=== PATIENT | female | born 1955 | race Caucasian/White ===

== ENCOUNTER → 2017-08-26 12:09 | Outpatient (CLI) | payer OTHER, SELFPAY ==
--- NOTE | 2017-08-26 | DI.MG.S_ITS ---
BILATERAL DIGITAL SCREENING MAMMOGRAM 3D/2D WITH CAD: 08/26/2017 CLINICAL: Routine screening. Comparison is made to exams dated: 05/03/2016 mammogram, 08/20/2014 mammogram, and 07/10/2013 mammogram - [facility]. There are scattered fibroglandular elements in both breasts. Current study was also evaluated with a Computer Aided Detection (CAD) system. There is a benign density in the right breast. No significant masses, calcifications, or other findings are seen in either breast. There has been no significant interval change. IMPRESSION: BENIGN There is no mammographic evidence of malignancy. A 1 year screening mammogram is recommended. This exam was interpreted at Station ID: [id number]. NOTE: For mammograms, a report in lay terms will be sent to the patient. Approximately 15% of breast malignancies will not be visualized mammographically. In the management of a palpable breast mass, a negative mammogram must not discourage biopsy of a clinically suspicious lesion. Electronically Signed By: Scooby higginbotham/geovanny:08/28/2017 11:35:58 letter sent: Normal Exam ACR BI-RADS Category 2: Benign Finding(s) 3342F
== END ==
DX: Z12.31 Encounter for screening mammogram for malignant neoplasm of breast (principal)
CPT/HCPCS: 77063; 77067

== ENCOUNTER → 2017-09-01 07:36 | Outpatient (CLI) | payer OTHER, SELFPAY ==
[2017-09-01 08:36] LABS: Add Manual Diff / Slide Review NO; Basophils Percent Auto 0.8 % (0-2); Eosinophils Percent Auto 6.4 % (2-4); Hematocrit 42.2 % (36-46); Hemoglobin 14.4 g/dL (12.0-16.0); Lymphocytes Percent Auto 29.2 % (25-40); Mean Corpuscular HGB Conc 34.1 % (30-36); Mean Corpuscular Hemoglobin 29.8 PG (26-34); Mean Corpuscular Volume 87.4 fL (80-100); Monocytes Percent Auto 8.9 % (3-14); Neutrophils Absolute Auto 3000 /uL (3000-5900); Neutrophils Percent Auto 54.7 % (50-75); Platelet Count 262 X10^3/uL (150-400); Red Blood Cell Count 4.83 X10^6/uL (4.0-5.2); Red Cell Distribution Width 14.4 % (11.6-14.8); White Blood Cell Count 5.5 X10^3/uL (4.5-11.0)
[2017-09-01 09:04] LABS: Alanine Aminotransferase 25 IU/L (9-52); Albumin 4.1 g/dL (3.5-5.0); Albumin Globulin Ratio 1.2 (1.0-2.8); Alkaline Phosphatase 68 U/L (38-126); Aspartate Aminotransferase 21 IU/L (14-36); BUN Creatinine Ratio 18.3 (6-22); Bilirubin Total 0.6 mg/dL (0.2-1.3); Calcium 9.4 mg/dL (8.4-10.2); Cholesterol 193 mg/dL (140-199); Estimated Glomerular Filt Rate > 60.0 mL/min (>60); Globulin 3.4 g/dL (1.7-4.1); Glucose 96 mg/dL (80-110); HDL Cholesterol 56 mg/dL (40-60); HEMOLYSIS 20 (0-50); LDL Cholesterol Calculated 110 mg/dL (<100); Potassium 4.1 mmol/L (3.4-5.1); Sodium 139 mmol/L (137-145); Total Protein 7.5 g/dL (6.3-8.2); Triglycerides 137 mg/dL (35-150)
[2017-09-01 09:33] LABS: Thyroid Stimulating Hormone 1.98 uIU/mL (0.47-4.68)
== END ==
DX: Z13.228 Encounter for screening for other metabolic disorders (principal); Z13.220 Encounter for screening for lipoid disorders
CPT/HCPCS: 36415; 80053; 80061; 84443; 85025

== ENCOUNTER → 2018-12-29 10:12 | Outpatient (CLI) | payer OTHER, SELFPAY ==
--- NOTE | 2018-12-29 | DI.MG.S_ITS ---
BILATERAL DIGITAL SCREENING MAMMOGRAM 3D/2D WITH CAD: 12/29/2018 CLINICAL: Routine screening. Comparison is made to exams dated: 08/26/2017 mammogram, 05/03/2016 mammogram, and 08/20/2014 mammogram - [facility]. There are scattered fibroglandular elements in both breasts. Current study was also evaluated with a Computer Aided Detection (CAD) system. There is possible architectural distortion in the right breast at 10 o'clock posterior depth. No other significant masses, calcifications, or other findings are seen in either breast. IMPRESSION: INCOMPLETE: NEEDS ADDITIONAL IMAGING EVALUATION The possible architectural distortion in the right breast is indeterminate. Additional views with possible ultrasound are recommended. This exam was interpreted at Station ID: [id number]. NOTE: For mammograms, a report in lay terms will be sent to the patient. Approximately 15% of breast malignancies will not be visualized mammographically. In the management of a palpable breast mass, a negative mammogram must not discourage biopsy of a clinically suspicious lesion. Electronically Signed By: Jade [email or web address]:12/31/2018 10:31:34 letter sent: Additional Imaging Needed ACR BI-RADS Category 0: Incomplete 3340F
== END ==
DX: Z12.31 Encounter for screening mammogram for malignant neoplasm of breast (principal)
CPT/HCPCS: 77063; 77067

== ENCOUNTER → 2019-01-17 13:33 | Outpatient (CLI) | payer OTHER, SELFPAY ==
--- NOTE | 2019-01-17 | DI.MG.S_ITS ---
UNILATERAL RIGHT DIGITAL DIAGNOSTIC MAMMOGRAM 3D/2D WITH ADDITIONAL VIEWS: 01/17/2019 CLINICAL: Patient returns today to evaluate possible architectural distortion in the right breast. Comparison is made to exams dated: 12/29/2018 mammogram, 08/26/2017 mammogram, and 05/03/2016 mammogram - [facility]. There are scattered fibroglandular elements in right breast. Previously identified architectural distortion in the superior lateral right breast posterior depth (described as being near 10 o'clock position) on comparison screening mammogram of 12/29/18 persists with additional views. No other suspicious masses, calcifications, or other findings are seen in the breast. IMPRESSION: INCOMPLETE: NEEDS ADDITIONAL IMAGING EVALUATION Previously identified architectural distortion in the superior lateral right breast posterior depth (described as being near 10 o'clock position) on comparison screening mammogram of 12/29/18 persists with additional views. A targeted ultrasound is recommended for further evaluation, and will be performed immediately following this exam. This exam was interpreted at Station ID: [id number]. NOTE: For mammograms, a report in lay terms will be sent to the patient. Approximately 15% of breast malignancies will not be visualized mammographically. In the management of a palpable breast mass, a negative mammogram must not discourage biopsy of a clinically suspicious lesion. Electronically Signed By: Johnathan Shrestha M.D. ecl/:01/17/2019 14:21:47 ACR BI-RADS Category 0: Incomplete 3340F
--- NOTE | 2019-01-17 | DI.US.S_ITS ---
LIMITED ULTRASOUND OF RIGHT BREAST: 01/17/2019 CLINICAL: Patient returns today to evaluate an architectural distortion in the right breast. Comparison is made to exams dated: 01/17/2019 mammogram, 12/29/2018 mammogram, 08/26/2017 mammogram, 05/03/2016 mammogram, 08/20/2014 mammogram, and 07/10/2013 mammogram - [facility]. Color flow and real-time ultrasound of the right breast 9-10 o'clock region were performed. Minor scale images of the real-time examination were reviewed. There is a 0.9 x 0.8 x 1.7 cm heterogeneously echoic irregular indistinct mass with posterior shadowing in the right breast at 9:30 position 8 cm from the nipple which demonstrates no internal vascularity on Doppler imaging. This may or may not correlate with the area of architectural distortion seen on the comparison mammogram performed earlier on the same date 01/17/19. No other mass or abnormality is identified in this region by ultrasound. No ultrasound evidence of right axillary lymphadenopathy. IMPRESSION: SUSPICIOUS OF MALIGNANCY 1.7 x 0.9 x 0.8 cm irregular indistinct heterogeneous mass in the right breast at 9:30 position 8 cm from the nipple. This may or may not correlate with the area of architectural distortion seen on comparison mammography. An ultrasound-guided biopsy with marker clip placement is recommended; if the marker clip does not correlate with the area of architectural distortion, or if the mass is not able to be biopsied by ultrasound, consider stereotactic/tomosynthesis-guided biopsy for further evaluation. These results and recommendations were discussed with the patient at the time of the exam by Dr. Shrestha by telephone on 01/17/19. This exam was interpreted at Station ID: [id number]. Electronically Signed By: Johnathan Shrestha M.D. ecl/:01/18/2019 08:49:45 letter sent: Biopsy Required Ultrasound BI-RADS: 4c High suspicion of malignancy
== END ==
DX: R92.8 Other abnormal and inconclusive findings on diagnostic imaging of breast (principal); N63.11 Unspecified lump in the right breast, upper outer quadrant
CPT/HCPCS: 76642; 77065; G0279

== ENCOUNTER → 2019-02-15 07:36 | Outpatient (CLI) | payer OTHER, SELFPAY ==
--- NOTE | 2019-02-15 | DI.MG.S_ITS ---
UNILATERAL RIGHT DIGITAL DIAGNOSTIC MAMMOGRAM POST-NEEDLE BIOPSY: 02/15/2019 CLINICAL: Post right breast biopsy clip images. Comparison is made to exams dated: 01/17/2019 mammogram, 12/29/2018 mammogram, 08/26/2017 mammogram, and 01/17/2019 [facility]. There are scattered fibroglandular elements in right breast. There is a new dea shaped biopsy clip in the superior lateral right breast at posterior depth. This appears to be within or closely adjacent the area of architectural distortion described on comparison screening mammogram of 12/29/18 and diagnostic mammogram of 01/17/19. IMPRESSION: POST PROCEDURE MAMMOGRAM FOR MARKER PLACEMENT New dea shaped biopsy clip in the superior lateral right breast at posterior depth. This exam was interpreted at Station ID: [id number]. NOTE: For mammograms, a report in lay terms will be sent to the patient. Approximately 15% of breast malignancies will not be visualized mammographically. In the management of a palpable breast mass, a negative mammogram must not discourage biopsy of a clinically suspicious lesion. Electronically Signed By: Johnathan Shrestha M.D. ecl/:02/15/2019 11:52:54 ACR BI-RADS Category Post-procedure mammogram for marker placement
--- NOTE | 2019-02-15 | DI.US.S_ITS ---
ULTRASOUND GUIDED BIOPSY RIGHT BREAST USING VACUUM DEVICE WITH MARKING DEVICE INSERTED AND POST DIGITAL MAMMOGRAPHIC IMAGIN02/15/2019 CLINICAL: Right breast mass. PATIENT CONSENT: Risks (minor bleeding, infection, vasovagal reaction and repeat procedure), benefits and alternatives were explained to the patient and written informed consent was obtained. Correlation is made to exams dated: 01/17/2019 ultrasound, 01/17/2019 mammogram, 12/29/2018 mammogram, 08/26/2017 mammogram, 05/03/2016 mammogram, and 08/20/2014 mammogram - [facility]. An ultrasound guided biopsy using real-time ultrasound was performed for the concerning mass located in the right breast at 9:30 position 8 cm from the nipple. This was described on the previous ultrasound report. The skin was prepped in the usual manner. 5 mL of 1% lidocaine and 5 mL of 1% lidocaine with epinephrine was used for local anesthesia. A skin efraín was made in the breast. The abnormality was approached from the lateral aspect. A 13 gauge biopsy needle was placed adjacent to the abnormality under ultrasound guidance. Once the needle was documented to be in the correct location, six specimens were obtained using the Mammotome biopsy system. A Ezekiel-shaped clip was inserted into the biopsy cavity. A skin adhesive was applied to the access site. Post procedure digital mammographic imaging demonstrates the location device at the targeted area. The specimens were sent to the laboratory for pathological analysis. IMPRESSION: ULTRASOUND GUIDED BIOPSY BENIGN Ultrasound guided biopsy of the mass in the right breast at 9:30 position 8 cm from the nipple was successful with no apparent post procedure complications. Post procedure digital mammographic imaging demonstrates the location device at the targeted area of biopsy, and the newly placed biopsy clip appears to be within or closely adjacent the area of possible architectural distortion described on comparison screening mammogram of 12/29/18 and diagnostic mammogram of 01/17/19. Final pathology results per pathologist Dr. Kirti Bui identified fibrocystic changes including microcysts, apocrine metaplasia, and dense fibrous tissue. No microcalcifications identified. Negative for atypical hyperplasia, in situ, or invasive carcinoma. Pathology results appear to be concordant with ultrasound imaging findings but may not adequately explain the possible architectural distortion described on comparison screening mammography of 12/20/18 and diagostic mammography of 01/17/19. The previously described possible architectural distortion does not appear amenable to stereotactic biopsy at this time given post biopsy changes. A follow-up MRI in 4-8 weeks after post biopsy changes have resolved is recommended for further evaluation. This exam was interpreted at Station ID: [id number]. Johnathan Shrestha M.D. ecl/:02/25/2019 20:40:56
--- NOTE | 2019-02-15 | PATH_ITS ---
[facility] Accession Number: [id number] . 01 Material submitted: . breast - RIGHT BREAST MASS 9:30 8 CM FN . 01 Clinical history: . LEFT BREAST MASS . 02 Diagnosis: Right Breast, Mass at 9:30, 8 CM FN, Core Needle Biopsies: Fibrocystic changes including microcysts, apocrine metaplasia and dense fibrous breast tissue. No microcalcifications identified. Negative for atypical hyperplasia, in situ, or invasive carcinoma. MRV 02/18/2019 1048 Local . 02 Comment: As part of routine quality nurse, Dr. Santizo also reviewed this case and agrees with the diagnosis. . 02 Electronically signed: . Kirti Bui MD, Pathologist NPI- [id number] . 01 Gross description: . Received one formalin-filled container labeled with the patient's name and designated right breast mass 9:30 8 cm FN. The specimen is received with a plastic filter in container, sample loose in container and consists of multiple light yellow, rough, cylindrical-shaped portions of tissue which range in size from 0.1 x 0.1 x 0.1 cm to 1.0 x 0.3 x 0.2 cm. All fragments are totally submitted in one cassette. The specimen is entirely submitted in one cassette. Collection date: 02/15/19. Collection time per container: 8:40 a.m. Total fixation time: Approximately 39 hours. ([id number]) /FRHelen 02/16/2019 0433 Local . 02 Pathologist provided ICD-10: N63.10 . 02 CPT . 407132 Performed at: 01 [facility] [address], [place], [place] [id number] MD Scooby Gonzales MD Phone: [phone] Performed at: 02 [facility] [address] [place] [id number] MD Kirti Bui MD Phone: [phone]
== END ==
DX: N60.81 Other benign mammary dysplasias of right breast (principal)
CPT/HCPCS: 19083; 77065

== ENCOUNTER → 2019-12-30 07:47 | Outpatient (CLI) | payer OTHER, SELFPAY ==
[2019-12-30 08:20] LABS: Hemoglobin A1C% w Est Avg Glu 5.8 % (4.0-6.0)
[2019-12-30 08:45] LABS: Hematocrit 41.3 % (36-46); Hemoglobin 13.8 g/dL (12.0-16.0); Mean Corpuscular HGB Conc 33.3 % (30-36); Mean Corpuscular Volume 84.1 fL (80-100); Platelet Count 307 X10^3/uL (150-400); Red Blood Cell Count 4.91 X10^6/uL (4.0-5.2); Red Cell Distribution Width 15.7 % (11.6-14.8); White Blood Cell Count 6.6 X10^3/uL (4.5-11.0)
[2019-12-30 09:21] LABS: Alanine Aminotransferase 15 IU/L (<35); Albumin 3.9 g/dL (3.5-5.0); Albumin Globulin Ratio 1.3 (1.0-2.8); Alkaline Phosphatase 70 U/L (38-126); Aspartate Aminotransferase 19 IU/L (14-36); BUN Creatinine Ratio 17.8 (6-22); Bilirubin Total 0.5 mg/dL (0.2-1.3); Blood Urea Nitrogen 13 mg/dL (7-17); Calcium 9.7 mg/dL (8.4-10.2); Carbon Dioxide 25 mmol/L (22-32); Chloride 105 mmol/L (98-107); Cholesterol 185 mg/dL (140-199); Estimated Glomerular Filt Rate > 60.0 mL/min (>60); Globulin 3.1 g/dL (1.7-4.1); Glucose 100 mg/dL (80-110); HDL Cholesterol 57 mg/dL (40-60); HEMOLYSIS < 15 (0-50); LDL Cholesterol Calculated 99 mg/dL (<100); Potassium 4.7 mmol/L (3.4-5.1); Sodium 139 mmol/L (137-145); Triglycerides 145 mg/dL (35-150)
[2019-12-30 09:38] LABS: Vitamin D 25 Hydroxy (D3) 22.2 ng/mL (30.0-100.0)
[2019-12-30 09:51] LABS: TSH w/ Reflex to FT4 1.98 uIU/mL (0.47-4.68)
== END ==
PROVIDERS: PCP Family Medicine; Referring Provider Family Medicine; Visit Provider Family Medicine
DX: Z00.00 Encounter for general adult medical examination without abnormal findings (principal); E66.01 Morbid (severe) obesity due to excess calories; Z13.220 Encounter for screening for lipoid disorders; Z83.49 Family history of other endocrine, nutritional and metabolic diseases; Z13.1 Encounter for screening for diabetes mellitus
CPT/HCPCS: 36415; 80053; 80061; 82306; 83036; 84443; 85027

== ENCOUNTER → 2020-01-06 10:13 | Outpatient (CLI) | payer OTHER, SELFPAY ==
--- NOTE | 2020-01-06 | DI.MG.S_ITS ---
BILATERAL DIGITAL SCREENING MAMMOGRAM 3D/2D WITH CAD: 01/06/2020 CLINICAL: Routine screening. Comparison is made to exams dated: 02/15/2019 mammogram, 01/17/2019 mammogram, 12/29/2018 mammogram, and 08/26/2017 mammogram - [facility]. There are scattered fibroglandular elements in both breasts. Current study was also evaluated with a Computer Aided Detection (CAD) system. There are benign calcifications in the left breast. There also is a biopsy clip in the right breast. No significant masses, calcifications, or other findings are seen in either breast. There has been no significant interval change. IMPRESSION: BENIGN There is no mammographic evidence of malignancy. A 1 year screening mammogram is recommended. This exam was interpreted at Station ID: [id number]. NOTE: For mammograms, a report in lay terms will be sent to the patient. Approximately 15% of breast malignancies will not be visualized mammographically. In the management of a palpable breast mass, a negative mammogram must not discourage biopsy of a clinically suspicious lesion. Electronically Signed By: Scooby higginbotham/geovanny:01/06/2020 11:45:11 letter sent: Normal Exam ACR BI-RADS Category 2: Benign Finding(s) 3342F
== END ==
PROVIDERS: PCP Family Medicine; Referring Provider Family Medicine; Visit Provider Family Medicine
DX: Z12.31 Encounter for screening mammogram for malignant neoplasm of breast (principal)
CPT/HCPCS: 77063; 77067

== ENCOUNTER → 2020-07-16 13:47 | Outpatient (CLI) | payer OTHER, SELFPAY ==
[2020-07-16] MEDS: COVID-19 VACC, Ad26(JANSSEN)/PF 0.5 ML IM (13:53)
== END ==
PROVIDERS: PCP Family Medicine; Visit Provider Internal Medicine
DX: Z23 Encounter for immunization (principal)
CPT/HCPCS: 0031A; 91303

== ENCOUNTER 2021-05-11 17:14 | Emergency (ER) | payer OTHER, SELFPAY ==
[2021-05-11 17:20] VITALS: BP 200/100; PULSE 77; RESP 20; TEMP 36.6; O2SAT 100
--- NOTE | 2021-05-11 17:44 | DI.RAD.S_ITS ---
PROCEDURE: XR WRIST LT MIN 3V INDICATIONS: fall TECHNIQUE: 4 views of the wrist were acquired. COMPARISON: None. FINDINGS: Bones: There is a comminuted intra-articular fracture of the distal radius with mild dorsal angulation. No suspicious bony lesions. Scaphoid view: Intact scaphoid. Soft tissues: No suspicious soft tissue calcifications. IMPRESSION: Comminuted intra-articular fracture of the distal radius with mild dorsal angulation. Dictated by: Aleksander Balderas M.D. on 05/11/2021 at 18:14 Approved by: Aleksander Balderas M.D. on 05/11/2021 at 18:19
--- NOTE | 2021-05-11 18:27 | DI.RAD.S_ITS ---
PROCEDURE: XR FOREARM LT 2V INDICATIONS: Foosh TECHNIQUE: 2 views of the forearm were acquired. COMPARISON: None. FINDINGS: Bones: Comminuted distal radial intra-articular fracture with displaced fracture fragments. No additional fracture noted. Normal bone mineralization. Soft tissues: No suspicious soft tissue calcifications or masses. IMPRESSION: Comminuted distal radial intra-articular fracture Approved by: Felix Figueredo M.D. on 05/11/2021 at 18:13
--- NOTE | 2021-05-11 18:27 | DI.RAD.S_ITS ---
PROCEDURE: XR ELBOW LT MIN 3V INDICATIONS: foosh TECHNIQUE: 3 views of the elbow were acquired. COMPARISON: None. FINDINGS: Bones: No fractures or dislocations. No suspicious bony lesions. Soft tissues: No elbow joint effusion. No suspicious soft tissue calcifications. IMPRESSION: Normal elbow radiographs Approved by: Felix Figueredo M.D. on 05/11/2021 at 18:14
--- NOTE | 2021-05-11 18:27 | DI.RAD.S_ITS ---
PROCEDURE: XR HAND LT MIN 3V INDICATIONS: foosh TECHNIQUE: 3 views of the hand(s) acquired. COMPARISON: None. FINDINGS: Bones: Comminuted distal radial intra-articular fracture extends into the radiocarpal joint space with displaced fracture fragments. Soft tissues: No suspicious soft tissue calcifications. Associated soft tissue swelling without radiopaque foreign body IMPRESSION: Comminuted intra-articular distal radial fracture with displacement Approved by: Felix Figueredo M.D. on 05/11/2021 at 18:12
[2021-05-11] MEDS: IBUPROFEN 400 MG TABLET 800 MG PO (18:44)
--- NOTE | 2021-05-11 19:25 | ED.UPPEXIN ---
HPI - Extremity Injury (Upper) <Ana Laura Francis PA-C - Last Filed: 05/11/21 20:12> General Chief Complaint: Extremity Injury, Upper Stated Complaint: Left wrist injury Time Seen by Provider: 05/11/21 17:43 Source: patient Mode of arrival: Ambulatory History of Present Illness HPI narrative: 65-year-old female with no reported past medical history presents to the ED status post a left wrist injury sustained just prior to arrival. Patient had a mechanical slip and fall while coming down the stairs, had a FOOSH injury. Patient denies head strike. Patient denies being on blood thinners. Patient denies numbness, tingling, weakness. Patient denies fever, chills, chest pain, shortness of breath, cough, nausea, vomiting, lightheadedness, dizziness, syncope. Related Data Allergies Allergy/AdvReac Type Severity Reaction Status Date / Time No Known Drug Allergies Allergy Verified 05/11/21 17:21 Review of Systems <Ana Laura Francis PA-C - Last Filed: 05/11/21 20:12> Review of Systems ROS Unobtainable: All systems reviewed & are unremarkable except as noted in HPI and below Constitutional Constitutional: Denies chills, Denies fatigue, Denies fever(s), Denies frequent falls, Denies lethargy and Denies weakness Eyes Eyes: Denies change in vision, Denies eye discharge, Denies irritation and Denies loss of vision ENT Ears, Nose, Mouth, and Throat: Denies change in voice, Denies dizziness, Denies neck pain, Denies sore throat and Denies throat swelling Cardiovascular Cardiovascular: Denies chest pain, Denies irregular heart rhythm, Denies lightheadedness, Denies palpitations, Denies dyspnea, Denies dyspnea on exertion and Denies orthopnea Respiratory Respiratory: Denies cough, Denies dyspnea, Denies dyspnea on exertion and Denies wheezing Gastrointestinal Gastrointestinal: Denies abdominal pain, Denies change in bowel habits, Denies diarrhea, Denies nausea and Denies vomiting Genitourinary Genitourinary: Denies hematuria, Denies flank pain, Denies urinary incontinence and Denies urinary urgency Musculoskeletal Musculoskeletal: Denies back pain, Denies muscle weakness, Denies neck pain, Denies numbness and Denies tingling Comments: Left wrist injury, pain, swelling Integumentary/Breasts Skin/Breast: Denies pruritus, Denies erythema, Denies rash and Denies wounds Neurologic Neurologic: Denies behavioral changes, Denies confusion, Denies dizziness, Denies frequent falls, Denies loss of vision, Denies numbness, Denies tingling and Denies weakness Psychiatric Psychiatric: Denies anxiety, Denies behavioral changes, Denies confusion, Denies depression, Denies homicidal ideation and Denies suicidal ideation Endocrine Endocrine: Denies fatigue, Denies flushing and Denies palpitations Hematologic/Lymphatic Hematologic/Lymphatic: Denies easy bruising Allergic/Immunologic Allergic/Immunologic: Denies urticaria, Denies throat swelling and Denies wheezing Exam <Ana Laura Francis PA-C - Last Filed: 05/11/21 20:12> Initial Vital Signs Initial Vital Signs: Vital Signs Temperature 97.8 F 05/11/21 17:20 Pulse Rate 77 05/11/21 17:20 Respiratory Rate 20 05/11/21 17:20 Blood Pressure 200/100 H 05/11/21 17:20 Pulse Oximetry 100 05/11/21 17:20 Const General: cooperative, healthy appearing and comfortable Resp Effort & Inspection: normal respiratory effort Auscultation: clear to auscultation bilaterally Cardio Rate: regular rate Rhythm: regular rhythm Skin General: no rashes or lesions noted Neuro General: patient alert, patient awake and patient oriented x3 Extrem Other: Swelling, tenderness to palpation of left wrist. Deformity noted. Neurovascularly intact. Strength and sensation intact. Cap refill less than 2 seconds. Full range of motion. Psych Appearance: grossly normal <Dorian Valdes DO - Last Filed: 05/12/21 07:13> Initial Vital Signs Initial Vital Signs: Vital Signs Temperature 97.8 F 05/11/21 17:20 Pulse Rate 77 05/11/21 17:20 Respiratory Rate 20 05/11/21 17:20 Blood Pressure 200/100 H 05/11/21 17:20 Pulse Oximetry 100 05/11/21 17:20 Procedures <Ana Laura Francis PA-C - Last Filed: 05/11/21 20:12> Orthopedic Fracture Reduction Fracture #1: Side: left Fracture Reduction Location: radius Analgesia: none Technique: direct manipulation Post-reduction neuro exam: intact Post-reduction vascular exam: intact Splint Applied: Yes Patient Tolerated Procedure: Well Orthopedic Splinting/Casting Injury #1: Side: left Upper Extremity Injury Location: wrist Upper Extremity Immobilizer: wrist splint Post splinting neuro exam: intact Post splinting vascular exam: intact Placed by: Provider Course <Ana Laura Francis PA-C - Last Filed: 05/11/21 20:12> Orders Ordered: Discontinued Medications Ibuprofen (Ibuprofen 400 Mg Tablet) 800 mg PO NOW ONE Stop: 05/11/21 18:24 Last Admin: 05/11/21 18:44 Dose: 800 mg Documented by: NETO Morphine Sulfate (Morphine 4 Mg/Ml Inj) 4 mg IM NOW ONE Stop: 05/11/21 19:40 Last Admin: 05/11/21 19:57 Dose: Not Given Documented by: NETO Vital Signs Vital signs: Vital Signs - 8 hr 05/11/21 17:20 05/11/21 19:26 Temperature 97.8 F Pulse Rate 77 94 H Respiratory Rate 20 Blood Pressure 200/100 H 153/79 H Pulse Oximetry 100 97 <Dorian Valdes DO - Last Filed: 05/12/21 07:13> Orders Ordered: Discontinued Medications Ibuprofen (Ibuprofen 400 Mg Tablet) 800 mg PO NOW ONE Stop: 05/11/21 18:24 Last Admin: 05/11/21 18:44 Dose: 800 mg Documented by: NETO Morphine Sulfate (Morphine 4 Mg/Ml Inj) 4 mg IM NOW ONE Stop: 05/11/21 19:40 Last Admin: 05/11/21 19:57 Dose: Not Given Documented by: NETO Vital Signs Vital signs: Vital Signs - 8 hr 05/11/21 17:20 05/11/21 19:26 Temperature 97.8 F Pulse Rate 77 94 H Respiratory Rate 20 Blood Pressure 200/100 H 153/79 H Pulse Oximetry 100 97 MDM - Extremity Injury (Upper) <Ana Laura Farncis PA-C - Last Filed: 05/11/21 20:12> Imaging Data Extremity x-ray #1: Radiologist's Impression: PROCEDURE:? XR HAND LT MIN 3V ? INDICATIONS:? foosh ? TECHNIQUE:? 3 views of the hand(s) acquired.? ? COMPARISON:? None. ? FINDINGS:? ? Bones:? Comminuted distal radial intra-articular fracture extends into the radiocarpal joint space with displaced fracture fragments. ? Soft tissues:? No suspicious soft tissue calcifications.? Associated soft tissue swelling without radiopaque foreign body ? ? IMPRESSION:? Comminuted intra-articular distal radial fracture with displacement ? ? ? Approved by: Felix Figueredo M.D. on 05/11/2021 at 18:12? Extremity x-ray #2: Radiologist's Impression: PROCEDURE:? XR FOREARM LT 2V ? INDICATIONS:? Foosh ? TECHNIQUE:? 2 views of the forearm were acquired.? ? COMPARISON:? None. ? FINDINGS:? ? Bones:? Comminuted distal radial intra-articular fracture with displaced fracture fragments.? No additional fracture noted.? Normal bone mineralization. ? Soft tissues:? No suspicious soft tissue calcifications or masses.? ? ? IMPRESSION:? Comminuted distal radial intra-articular fracture ? Approved by: Felix Figueredo M.D. on 05/11/2021 at 18:13? Extremity x-ray #3: Radiologist's Impression: PROCEDURE:? XR ELBOW LT MIN 3V ? INDICATIONS:? foosh ? TECHNIQUE:? 3 views of the elbow were acquired.? ? COMPARISON:? None. ? FINDINGS:? ? Bones:? No fractures or dislocations.? No suspicious bony lesions.? ? Soft tissues:? No elbow joint effusion.? No suspicious soft tissue calcifications.? ? ? IMPRESSION:? Normal elbow radiographs ? ? ? Approved by: Felix Figueredo M.D. on 05/11/2021 at 18:14? Wrist x-ray: Radiologist's Impression: PROCEDURE:? XR WRIST LT MIN 3V ? INDICATIONS: fall ? TECHNIQUE:? 4 views of the wrist were acquired.? ? COMPARISON:? None. ? FINDINGS:? ? Bones:? There is a comminuted intra-articular fracture of the distal radius with mild dorsal angulation. ? No suspicious bony lesions.? ? Scaphoid view:? Intact scaphoid. ? Soft tissues:? No suspicious soft tissue calcifications.? ? IMPRESSION:? Comminuted intra-articular fracture of the distal radius with mild dorsal angulation. ? ? ? Dictated by: Aleksander Balderas M.D. on 05/11/2021 at 18:14 ? ? Approved by: Aleksander Balderas M.D. on 05/11/2021 at 18:19 ? MDM Narrative Medical decision making narrative: 65-year-old female with no reported past medical history presents to the ED status post a left wrist injury sustained just prior to arrival. Concern for fracture/dislocation versus musculoskeletal sprain/strain. Will obtain x-rays. Will treat pain with ibuprofen. X-ray shows a comminuted intra-articular distal radius fracture with displacement. Dr. Vogt from ortho consulted. She recommends closed reduction with this immobilization with a splint, CT, outpatient follow-up in the clinic. Discharge Plan Departure Patient Disposition: Home Clinical Impression: Distal radial fracture Instructions: DI for Distal Radius Fracture Activity Restrictions/Additional Instructions: You were evaluated in the ED today for a left wrist injury. Your x-ray showed a distal radius fracture with displacement. Your wrist was reduced and splinted. Please keep the splint on until you see the ortho specialist. Dr. Vogt, ortho specialist was consulted and she will see you in the clinic. Please call [facility] at [phone] to secure an appointment. Return to the ED if your symptoms worsen, you experience numbness, tingling, weakness. Referrals: Dania Glez DO [Primary Care Provider] - <Dorian Valdes DO - Last Filed: 05/12/21 07:13> [facility] Dr Valdes Co-Sign Statement: I was available for consultation during this patient's emergency department visit. This chart is signed by myself for administrative purposes only. I did not have direct contact with this patient during this visit. They were seen independently by the APC.
[2021-05-11 19:26] VITALS: BP 153/79; PULSE 94; O2SAT 97
== END 2021-05-11 20:22 | disposition home or self-care (01) ==
PROVIDERS: Emergency Provider Student in an Organized Health Care Education/Training Program; PCP Family Medicine
DX: S52.572A Other intraarticular fracture of lower end of left radius, initial encounter for closed fracture (principal); W01.0XXA Fall on same level from slipping, tripping and stumbling without subsequent striking against object, initial encounter
CPT/HCPCS: 25605; 73080; 73090; 73110; 73130; 99283

== ENCOUNTER → 2021-05-13 09:09 | Outpatient (CLI) | payer OTHER, SELFPAY ==
--- NOTE | 2021-05-13 | DI.CT.S_ITS ---
PROCEDURE: CT UE LT WO CON INDICATIONS: COMMINUTED LEFT DISTAL RADIUS FRACTURE TECHNIQUE: Noncontrast 1 mm axial sections acquired through the carpal bones, with coronal and sagittal reformats. COMPARISON: [facility], CR, XR WRIST LT MIN 3V, 05/11/2021, 17:48. FINDINGS: Image quality: Excellent. Bones: Redemonstrated comminuted fracture of the distal radius, which extends to the articular surface. Areas of sclerosis are seen about the fracture site, which may reflect ongoing healing. Minimal callus formation is appreciated. A thin calcific density is seen adjacent to the distal scaphoid pole (8-139), which may reflect a small avulsion fracture. The remaining visualized osseous structures appear maintained Soft tissues: Diffuse soft tissue edema about the fracture site. IMPRESSION: Comminuted fracture of the distal radius as detailed above. Dictated by: Jose Miguel Perez M.D. on 05/13/2021 at 10:47 Approved by: Jose Miguel Perez M.D. on 05/13/2021 at 10:52
== END ==
PROVIDERS: PCP Family Medicine; Referring Provider Orthopaedic Surgery Foot and Ankle Surgery; Visit Provider Orthopaedic Surgery Foot and Ankle Surgery
DX: S52.572A Other intraarticular fracture of lower end of left radius, initial encounter for closed fracture (principal); Z20.822 Contact with and (suspected) exposure to COVID-19; X58.XXXA Exposure to other specified factors, initial encounter
CPT/HCPCS: 73200; 87635; C9803

== ENCOUNTER → 2021-05-13 10:01 | Outpatient (CLI) | payer OTHER, SELFPAY ==
[2021-05-13 11:01] LABS: COVID19 -Nasal RAPID Negative (Negative)
== END ==
PROVIDERS: PCP Family Medicine; Visit Provider Family Medicine Sleep Medicine
DX: Z20.822 Contact with and (suspected) exposure to COVID-19 (principal)
CPT/HCPCS: 87635

== ENCOUNTER 2021-05-14 10:05 | Day surgery (SDC) | payer OTHER, SELFPAY ==
[2021-05-14 10:20] VITALS: BP 136/75; PULSE 75; RESP 16; TEMP 36.4; O2SAT 95; BMI 42.3
[2021-05-14] MEDS: LACTATED RINGERS 1,000 ML 42 ML IV (10:47)
--- NOTE | 2021-05-14 14:28 | PM.PREOP ---
Pre-operative Note COVID-19 COVID-19 status: Negative Result date/Date tested (Pos, Neg/Pending): 05/13/21 Criteria for continued procedure: Possibility delay results in more complex future surgery or treatment, Increased loss of function and Delay expected to result in less-positive ultimate med/surg outcome Interval Note History & Physical reviewed/Exam performed by Physician: Yes Changes to H&P: No
[2021-05-14] MEDS: CEFAZOLIN 2 GM/20 ML SYRINGE IV (14:50)
--- NOTE | 2021-05-14 15:12 | SUR.OPER ---
Supine on padded OR bed, head on pillow, nonoperative arm secured on padded arm board at <90 degrees abduction, operative arm on hand table, legs uncrossed, safety belt at thigh, tape over blanket over lower legs.
[2021-05-14] MEDS: BUPIVACAINE 0.25% (PF) 30 ML, EPINEPHrine 0.15 MG INJ (16:38)
[2021-05-14 16:51] VITALS: BP 129/72; PULSE 81; RESP 18; TEMP 36; O2SAT 10
[2021-05-14 16:56] VITALS: BP 142/76; PULSE 82; RESP 12; O2SAT 92
[2021-05-14 17:02] VITALS: BP 133/76; PULSE 82; RESP 14; O2SAT 94
--- NOTE | 2021-05-14 17:06 | P.OP_ITS ---
Operative Date/Time/Diagnoses Date of procedure: 05/14/21 Time of procedure: 15:00 Pre-op diagnosis: Comminuted intra-articular left distal radius fracture S52.572A Post-op diagnosis: same Procedure & Clinicians Procedure: Left Open reduction internal fixation distal radius fracture CPT code 16309--- #58 Procedure was performed with a modifier 58 for a more extensive, staged procedure. The patient underwent closed reduction of her displaced intra- articular distal radius fracture the time presentation clinic in order to reduce the near 30? of dorsal angulation restore some length angulation and facilitate appropriate advanced imaging with CT scan for surgical planning and allow for soft tissue swelling resolution pain control and reduce the pressure on the neurovascular structures. She presented today for definitive open reduction internal fixation. Same procedure as scheduled: Yes Indications: Patient is a 65-year-old female that sustained a left comminuted intra-articular distal radius fracture when she fell down stairs. She was seen in the emergency department and placed into a wrist brace. She presented to orthopedic clinic with a grossly displaced angulated distal radius fracture and soft tissue swelling. She was indicated for hematoma block and closed reduction to improve alignment decreased pressure on neurovascular structures and facilitate advanced imaging for planning for fixation for this extremely comminuted fracture and improved alignment for CT scan. It was discussed that this would be a staged procedure during the ongoing COVID19 pandemic to her open reduction internal fixation when operative time was available in the next few days to week. She was indicated for operative fixation due to the displaced intra-articular nature of her fracture, To better align the joint reduce the risk of posttraumatic arthritis, and dysfunction. The risks and benefits of the procedure have been discussed with the patient given the opportunity to ask questions. The risks of surgery include but are not limited to infection, malunion, nonunion, persistence of pain, damage to nerves and blood vessels, posttraumatic arthritis, DVT, PE, cardiopulmonary complications and . The patient expressed a thorough understanding of the risks and benefits of surgery and has elected to proceed. Consent was signed in the office. Surgeon: Desirae Vogt Click Yes if Unassisted: Yes Anesthesia Type: General and Local Operative Notes Findings: Comminuted intra-articular distal radius fracture 30 distal volar component comminuted radial styloid and severe comminution dorsal cortex that extended into the dorsal metaphysis. This was reduced and pinned with K-wires and then fixed with a Arthrex standard volar locking plate. An initial cortical screw was placed distally to secure the volar ulnar corner to the displaced dorsal ulnar fragment then locking pegs were placed and locking screws placed in the shaft. Initial cortical screw in the oblong hole of the distal radius shaft was found to displace the dorsal metaphyseal fragments with this was removed. Post reduction intraoperative fluoroscopy confirmed appropriate alignment reduction absence of intra-articular hardware. Good flexion and extension range of motion and stable DRUJ. No scapholunate widening was appreciated Closure Type: primary Specimen(s): none sent Prosthetic devices, grafts, tissues, transplants, or devices: Arthrex standard volar locking plate Estimated Blood Loss (mL): 10 Blood products transfused: none Tourniquet time (min): 75 Procedure in detail: Patient was seen in the preoperative area the site of surgery marked informed consent confirmed. She was brought back to the operating room by the anesthesia team positioned supine on operative table. The operative extremity was positioned on the hand table. All bony prominences well padded. A well-padded brachial tourniquet was placed. Anesthetic was administered. The left upper extremities prepped and draped in the standard sterile fashion. A formal time- out procedure was performed confirming the patient's side and site of surgery administration of appropriate preoperative antibiotics. All were in agreement. An Esmarch was used for exsanguination the tourniquet raised on the arm to 250 mmHg. The standard FCR approach to the wrist was drawn and the incision made. The FCR was exposed. She was opened and the tendon was retracted radially to protect the radial artery. The floor of the FCR was then opened the FPL was identified and mobilized ulnarly. The pronator quadratus was exposed and released from the radius. The brachioradialis was released from the wrist and the floor of the 1st dorsal compartment was opened. The fracture was exposed. This was a very distal of older fracture right along the watershed line. Additionally there was comminution at the radial styloid. There was a known displaced ulnar dorsal fragment and dorsal comminution as well. A reduction maneuver with a palmar flexion was completed and a 045 K-wire was advanced percutaneously from the radial styloid into the metaphysis to hold reduction. This was checked on fluoroscopy and this did show improvement and muslim of radial inclination and volar tilt. A standard Arthrex volar locking plate was selected as this covered the comminuted fractured distal radius a better than the narrow plate. This was provisionally fixed in place. Once this was satisfactory an initial nonlocking 3 5 screw was placed in the oblong hole and secured. A distal cortical screw was placed in the far ulnar corner with care not to penetrate the dorsal cortex. An additional locking pegs were placed. Was found that the cortical screw in the shaft did displace a dorsal split in the metaphysis so this was removed and 2 final 3.5 locking screws were placed in the shaft. Final x-rays demonstrated no evidence of hardware prominence. Wrist motion was checked and there was a full range of motion was maintained the DRUJ was stable. No scapholunate widening was appreciated. There was no intra- articular hardware. The tourniquet was then released. Hemostasis was achieved. The wound was closed in layers with 3-0 Vicryl deep including closing the pronator quadratus over the plate. Subcutaneous with 4-0 Monocryl and 4-0 nylon for skin closure. Sterile dressings and a volar splint were applied. There no immediate complications noted. Surgical counts were correct. The patient tolerated the procedure well was taken to the recovery room. Complications: none Post-operative Condition: stable Disposition: PACU Plan for aftercare: Elbow and finger range of motion encouraged. No lifting heavier than a pencil or coffee cup with the operative extremity. Elevate and use pain medication, Tylenol or ibuprofen for pain relief. Follow up in approximately 2 weeks for suture removal and conversion back to your wrist brace and initiation of therapy. Encouraged to move the elbow and fingers for full range of motion 10 times an hour. Elevate and ice for edema control.
[2021-05-14 17:11] VITALS: BP 152/90; PULSE 79; RESP 13; TEMP 37.1; O2SAT 94
== END 2021-05-14 17:43 | disposition home or self-care (01) ==
PROVIDERS: PCP Family Medicine; Referring Provider Orthopaedic Surgery Foot and Ankle Surgery; Visit Provider Orthopaedic Surgery Foot and Ankle Surgery
PROC: (CPT 25609; principal; 2021-05-14 12:15)
DX: S52.572A Other intraarticular fracture of lower end of left radius, initial encounter for closed fracture (principal); W10.9XXA Fall (on) (from) unspecified stairs and steps, initial encounter; F32.9 Major depressive disorder, single episode, unspecified; E66.9 Obesity, unspecified; Z68.41 Body mass index [BMI] 40.0-44.9, adult
CPT/HCPCS: 25609; C1713; J0171; J0690; J1100; J2250; J2405; J2704; J3010

== ENCOUNTER → 2021-06-22 17:30 | Outpatient (CLI) | payer OTHER, SELFPAY ==
--- NOTE | 2021-06-22 | DI.MG.S_ITS ---
BILATERAL DIGITAL SCREENING MAMMOGRAM 3D/2D WITH CAD: 06/22/2021 CLINICAL: Routine screening. Comparison is made to exams dated: 01/06/2020 mammogram, 02/15/2019 mammogram, 01/17/2019 mammogram, 12/29/2018 mammogram, and 08/26/2017 mammogram - [facility]. There are scattered fibroglandular elements in both breasts. Current study was also evaluated with a Computer Aided Detection (CAD) system. There are benign calcifications in the left breast. There also is a biopsy clip in the right breast. No significant masses, calcifications, or other findings are seen in either breast. There has been no significant interval change. IMPRESSION: BENIGN There is no mammographic evidence of malignancy. A 1 year screening mammogram is recommended. This exam was interpreted at Station ID: [id number]. NOTE: For mammograms, a report in lay terms will be sent to the patient. Approximately 15% of breast malignancies will not be visualized mammographically. In the management of a palpable breast mass, a negative mammogram must not discourage biopsy of a clinically suspicious lesion. Electronically Signed By: Aleksander [email or web address]:06/23/2021 08:59:50 letter sent: Normal Exam ACR BI-RADS Category 2: Benign Finding(s) [id number]
== END ==
PROVIDERS: PCP Family Medicine; Referring Provider Family Medicine; Visit Provider Family Medicine
DX: Z12.31 Encounter for screening mammogram for malignant neoplasm of breast (principal)
CPT/HCPCS: 77063; 77067

== ENCOUNTER → 2022-03-17 10:06 | Outpatient (CLI) | payer OTHER, SELFPAY ==
[2022-03-17 11:07] LABS: Alanine Aminotransferase 19 IU/L (<35); Albumin 4.3 g/dL (3.5-5.0); Albumin Globulin Ratio 1.3 (1.0-2.8); Alkaline Phosphatase 70 U/L (38-126); Aspartate Aminotransferase 23 IU/L (14-36); BUN Creatinine Ratio 20.9 (6-22); Bilirubin Total 0.4 mg/dL (0.2-1.3); Blood Urea Nitrogen 14 mg/dL (7-17); Calcium 9.5 mg/dL (8.4-10.2); Carbon Dioxide 22 mmol/L (22-32); Chloride 105 mmol/L (98-107); Cholesterol 229 mg/dL (140-199); Estimated Glomerular Filt Rate > 60 mL/min (>60); Globulin 3.4 g/dL (1.7-4.1); Glucose 107 mg/dL (80-110); HDL Cholesterol 55 mg/dL (40-60); HEMOLYSIS < 15 (0-50); LDL Cholesterol Calculated 147 mg/dL (<100); Potassium 3.8 mmol/L (3.4-5.1); Sodium 139 mmol/L (137-145); Total Protein 7.7 g/dL (6.3-8.2); Triglycerides 133 mg/dL (35-150)
[2022-03-17 11:17] LABS: Vitamin D 25 Hydroxy (D3) 31.5 ng/mL (30.0-100.0)
[2022-03-17 12:05] LABS: TSH w/ Reflex to FT4 1.65 uIU/mL (0.47-4.68)
== END ==
PROVIDERS: PCP Family Medicine; Referring Provider Family Medicine; Visit Provider Family Medicine
DX: E66.01 Morbid (severe) obesity due to excess calories (principal); Z13.1 Encounter for screening for diabetes mellitus; E55.9 Vitamin D deficiency, unspecified; N95.1 Menopausal and female climacteric states; Z13.220 Encounter for screening for lipoid disorders
CPT/HCPCS: 36415; 80053; 80061; 82306; 84443

== ENCOUNTER → 2023-07-19 08:36 | Outpatient (CLI) | payer OTHER, SELFPAY ==
--- NOTE | 2023-07-19 08:40 | DI.MG.S_ITS ---
BILATERAL DIGITAL SCREENING MAMMOGRAM 3D/2D WITH CAD: 07/19/2023 CLINICAL: Routine screening. Comparison is made to exams dated: 06/22/2021 mammogram and 01/06/2020 mammogram - [facility]. There are scattered areas of fibroglandular density in both breasts (category b / 25%-50% glandular tissue). Current study was also evaluated with a Computer Aided Detection (CAD) system. There are benign calcifications in the left breast. There also is a biopsy clip in the right breast. No significant masses, calcifications, or other findings are seen in either breast. There has been no significant interval change. IMPRESSION: BENIGN There is no mammographic evidence of malignancy. A 1 year screening mammogram is recommended. Based on the Tyrer Cuzick model (a risk assessment model) the patient's lifetime risk is 6.3% and her 10 year risk is 3.3%. According to the ACR, ACS, and NCCN guidelines, an annual breast MRI exam along with mammogram is recommended if the patient's lifetime risk is 20% or greater. This exam was interpreted at Station ID: [id number]. NOTE: For mammograms, a report in lay terms will be sent to the patient. Approximately 15% of breast malignancies will not be visualized mammographically. In the management of a palpable breast mass, a negative mammogram must not discourage biopsy of a clinically suspicious lesion. Electronically Signed By: Jade [email or web address]:07/19/2023 14:06:25 letter sent: Normal Exam ACR BI-RADS Category 2: Benign Finding(s) [id number]
[2023-07-19 09:56] LABS: Add Manual Diff / Slide Review NO; Basophils Absolute Auto 0 /uL (0-100); Basophils Percent Auto 0.8 % (0-2); Eosinophils Absolute Auto 300 /uL (0-450); Eosinophils Percent Auto 6.1 % (2-4); Hematocrit 39.7 % (36-46); Lymphocytes Absolute Auto 1700 /uL (1100-4500); Lymphocytes Percent Auto 31.5 % (25-40); Mean Corpuscular HGB Conc 32.9 % (30-36); Mean Corpuscular Hemoglobin 27.4 PG (26-34); Mean Corpuscular Volume 83.3 fL (80-100); Monocytes Absolute Auto 400 /uL (0-900); Monocytes Percent Auto 7.5 % (3-14); Neutrophils Absolute Auto 2900 /uL (1500-7000); Neutrophils Percent Auto 54.1 % (50-75); Platelet Count 300 X10^3/uL (150-400); Red Blood Cell Count 4.76 X10^6/uL (4.0-5.2); White Blood Cell Count 5.4 X10^3/uL (4.5-11.0)
[2023-07-19 10:17] LABS: Alanine Aminotransferase 14 IU/L (<35); Albumin 4.2 g/dL (3.5-5.0); Albumin Globulin Ratio 1.4 (1.0-2.8); Alkaline Phosphatase 68 U/L (38-126); Aspartate Aminotransferase 20 IU/L (14-36); BUN Creatinine Ratio 21.9 (6-22); Bilirubin Total 0.6 mg/dL (0.2-1.3); Blood Urea Nitrogen 14 mg/dL (7-17); Calcium 10.2 mg/dL (8.4-10.2); Carbon Dioxide 23 mmol/L (22-32); Chloride 107 mmol/L (98-107); Cholesterol 226 mg/dL (140-199); Estimated Glomerular Filt Rate > 60 mL/min (>60); Globulin 3.1 g/dL (1.7-4.1); Glucose 102 mg/dL (80-110); HDL Cholesterol 70 mg/dL (40-60); HEMOLYSIS < 15 (0-50); LDL Cholesterol Calculated 125 mg/dL (<100); Potassium 4.3 mmol/L (3.4-5.1); Sodium 137 mmol/L (137-145); Total Protein 7.3 g/dL (6.3-8.2); Triglycerides 154 mg/dL (35-150)
[2023-07-19 10:25] LABS: Vitamin D 25 Hydroxy (D3) 46.6 ng/mL (30.0-100.0)
== END ==
LOC: MAMMO 08:38
PROVIDERS: PCP Family Medicine; Referring Provider Family Medicine; Visit Provider Family Medicine
DX: Z12.31 Encounter for screening mammogram for malignant neoplasm of breast (principal); F33.42 Major depressive disorder, recurrent, in full remission; E78.00 Pure hypercholesterolemia, unspecified; E55.9 Vitamin D deficiency, unspecified; R92.323 Mammographic fibroglandular density, bilateral breasts; F41.9 Anxiety disorder, unspecified; Z12.11 Encounter for screening for malignant neoplasm of colon
CPT/HCPCS: 36415; 77063; 77067; 80053; 80061; 82306; 85025

== ENCOUNTER → 2023-08-14 10:37 | Outpatient (CLI) | payer OTHER, SELFPAY ==
--- NOTE | 2023-08-14 10:38 | DI.RAD.S_ITS ---
PROCEDURE: XR DEXA AXIAL SKELETON INDICATIONS: SCREENING FOR OSTEOPOROSIS COMPARISON: None. FINDINGS: Lumbar Spine: Bone mineral density 1.018 g/cm2, T score 0, baseline. Left Hip: Bone mineral density is 0.898 g/cm2, T score -0.4, baseline. Left Femoral Neck: Bone mineral density 0.689 g/cm2, T score -1.4, baseline. Right Hip: Bone mineral density 0.885 g/cm2, T score -0.5, baseline. Right Femoral Neck: Bone mineral density is 0.757 g/cm2, T score -0.8, baseline. Fracture Risk Calculation (when applicable): Cannot be calculated due to premenopausal status (as indicated in the patient history questionnaire). (T score greater or equal to -1.0 to: NORMAL) (T score from -1.1 to -2.4: OSTEOPENIA) (T score less than or equal to -2.5: OSTEOPOROSIS) IMPRESSION: Osteopenia. Follow-up guidelines as follows: Osteoporosis: Consider a repeat DEXA and Vertebral Fracture Assessment (VFA) exam in 2 years or sooner if medically necessary, to reassess this patient's status. Osteopenia: Consider a repeat DEXA in 2-3 years to reassess this patient's status, or if there is a new clinical indication. Normal: Consider a repeat DEXA in 5 years or sooner, or if there is a new clinical indication. Dictated by: Clovis Glez M.D. on 08/14/2023 at 12:07 Approved by: Clovis Glez M.D. on 08/14/2023 at 12:09
== END ==
LOC: RAD 10:37
PROVIDERS: PCP Family Medicine; Referring Provider Family Medicine; Visit Provider Family Medicine
DX: Z13.820 Encounter for screening for osteoporosis (principal); M85.852 Other specified disorders of bone density and structure, left thigh
CPT/HCPCS: 77080

== ENCOUNTER → 2024-10-02 08:24 | Outpatient (CLI) | payer OTHER, SELFPAY ==
--- NOTE | 2024-10-02 08:26 | DI.MG.S_ITS ---
MM screening mammo BI: 10/02/2024. BI-RADS: 2 CLINICAL: 68-year old female for bilateral screening mammogram. Tyrer-Cuzick lifetime risk of 5.5%. No personal or first-degree family history of breast cancer. The patient had prior bilateral breast biopsies. PRIOR EXAMS 07/19/2023, 06/22/2021, 01/06/2020, 02/15/2019. MAMMOGRAPHY TECHNIQUE: 2D and 3D (tomosynthesis) digital mammographic views obtained, with additional images as needed for full coverage. Current study was also evaluated with a Computer Aided Detection (CAD) system. DENSITY B. There are scattered areas of fibroglandular density. MAMMOGRAPHY FINDINGS Right: Biopsy marker present on the right. Benign-appearing asymmetry noted on the right. There are no suspicious masses, calcifications, or other findings in the breast. Left: Benign-appearing calcifications noted on the left. There are no suspicious masses, calcifications, or other findings in the breast. IMPRESSION: * No evidence of malignancy with benign findings. RECOMMENDATIONS Bilateral * Annual screening mammography. OVERALL ASSESSMENT CATEGORY BI-RADS-2: Benign. The [employer] recommends annual screening mammography beginning at age 40 for women with average risk of breast cancer. ELECTRONICALLY SIGNED: David Juan M.D. on 10/02/2024 at 04:50:32 PM PT Interpreting Station ID: [id number]
== END ==
LOC: MAMMO 08:25
PROVIDERS: PCP Family Medicine; Referring Provider Family Medicine; Visit Provider Family Medicine
DX: Z12.31 Encounter for screening mammogram for malignant neoplasm of breast (principal)
CPT/HCPCS: 77063; 77067

== ENCOUNTER → 2024-10-23 09:55 | Outpatient (CLI) | payer OTHER, SELFPAY ==
[2024-10-23 11:08] LABS: Add Manual Diff / Slide Review NO; Hematocrit 38.5 % (36-46); Hemoglobin 12.9 g/dL (12.0-16.0); Lymphocytes Absolute Auto 1400 /uL (1100-4500); Mean Corpuscular HGB Conc 33.4 % (30-36); Mean Corpuscular Hemoglobin 28.2 PG (26-34); Mean Corpuscular Volume 84.2 fL (80-100); Platelet Count 277 X10^3/uL (150-400)
[2024-10-23 11:21] LABS: Alanine Aminotransferase 20 IU/L (<35); Albumin 4.3 g/dL (3.5-5.0); Albumin Globulin Ratio 1.6 (1.0-2.8); Alkaline Phosphatase 64 U/L (38-126); Blood Urea Nitrogen 14 mg/dL (7-17); Calcium 9.9 mg/dL (8.4-10.2); Carbon Dioxide 25 mmol/L (22-32); Chloride 105 mmol/L (98-107); Cholesterol 215 mg/dL (140-199); Estimated Glomerular Filt Rate > 60 mL/min (>60); Globulin 2.7 g/dL (1.7-4.1); Glucose 98 mg/dL (70-99); HDL Cholesterol 66 mg/dL (40-60); HEMOLYSIS < 15 (0-50); Potassium 4.2 mmol/L (3.4-5.1); Sodium 138 mmol/L (137-145); Total Protein 7.0 g/dL (6.3-8.2); Triglycerides 117 mg/dL (35-150)
[2024-10-23 11:33] LABS: Vitamin D 25 Hydroxy (D3) 34.9 ng/mL (30.0-100.0)
[2024-10-23 11:48] LABS: TSH w/ Reflex to FT4 1.20 uIU/mL (0.47-4.68)
== END ==
PROVIDERS: PCP Family Medicine; Referring Provider Family Medicine; Visit Provider Family Medicine
DX: Z00.00 Encounter for general adult medical examination without abnormal findings (principal); E66.01 Morbid (severe) obesity due to excess calories; E78.00 Pure hypercholesterolemia, unspecified; Z68.41 Body mass index [BMI] 40.0-44.9, adult
CPT/HCPCS: 36415; 80053; 80061; 82306; 84443; 85025